=== PATIENT | female | born 1980 | race African-American/Black ===

== ENCOUNTER 2017-07-22 21:31 | Emergency (ER) | payer OTHER ==
[2017-07-22 22:27] LABS: URINE HCG POC HCG NEGATIVE (Negative)
== END 2017-07-22 23:29 | disposition home or self-care (01) ==
LOC: ER 21:31
DX: S16.1XXA Strain of muscle, fascia and tendon at neck level, initial encounter (principal); R51 Headache; V43.52XA Car driver injured in collision with other type car in traffic accident, initial encounter; Y92.410 Unspecified street and highway as the place of occurrence of the external cause; Y93.89 Activity, other specified; Y99.8 Other external cause status
CPT/HCPCS: 70450; 72125; 81025; 99284

== ENCOUNTER → 2017-07-29 | Outpatient (CLI) | payer OTHER | END | disposition home or self-care (01) | LOC: RAD 14:33 | DX: M54.2 Cervicalgia (principal); V29.88XA Motorcycle rider (driver) (passenger) injured in other specified transport accidents, initial encounter | CPT/HCPCS: 72050 ==

== ENCOUNTER 2020-05-30 02:37 | Emergency (ER) | payer BC, MEDICAID ==
[~2020-05-30] VITALS: Ht 165.1 cm; Wt 117.3 kg
[~2020-05-30 02:37] MED LIST: TRAM50TA PO
[2020-05-30] MEDS ORDERED: CLIN300C9 PO (03:10)
[2020-05-30] MEDS ORDERED: HYDR-2765 PO (03:10)
--- NOTE | 2020-05-30 03:11 | PHYS DOC ---
Past Medical History Past Medical History: No Pertinent History Past Surgical History: No Surgical History Smoking Status: Current Some Day Smoker Alcohol Use: None Drug Use: None General Adult EDM: Chief Complaint: DENTAL PROBLEM HPI: HPI: Patient is a 39 year old female presents with the chief complaint of left lower dental pain. Patient states she has had pain and discomfort for greater than 1 week. Patient was prescribed oxacillin by her dentist. Patient states she is on day 6 with no improvement. Patient was also prescribed hydrocodone for pain but she is currently out of it. Review of Systems: Review of Systems: Review of systems: Constitutional symptoms- No fever, no chills. Eyes- No Discharge, No Visual Loss Respiratory symptoms- No shortness of breath, No wheezing, No Dyspnea on Exertion Cardiovascular Systems; No chest pain, No Palpitations, No syncope Gastrointestinal symptoms: NO abdominal pain, no nausea, no vomiting or diarrhea. Genitourinary symptoms: No dysuria. Musculoskeletal symptoms: No back pain No extremity pain. NEUROLOGICAL Symptoms: No headache, no generalized weakness; No focal Weakness HEENT positive dental pain Heart Score: C/O Chest Pain: No Risk Factors: Risk Factors: DM, Current or recent (<one month) smoker, HTN, HLP, family history of CAD, obesity. Risk Scores: Score 0 - 3: 2.5% MACE over next 6 weeks - Discharge Home Score 4 - 6: 20.3% MACE over next 6 weeks - Admit for Clinical Observation Score 7 - 10: 72.7% MACE over next 6 weeks - Early Invasive Strategies Physical Exam: PE: General: alert, no acute distress. Skin: warm, dry and intact. Head:: Normocephalic, atraumatic. Neck: Trachea midline. Eyes: EOMI, Normal conjunctiva, No drainage CARDIOVASCULAR: Regular rate and rhythm RESPIRATORY: No respiratory distress Back: Full range of motion. MUSCULOSKELETAL: Full range of motion of bilateral upper and lower extremities. GASTROINTESTINAL: Abdomen soft without rebound or guarding. NEUROLOGICAL: Alert and noted to person, place and time. No neurological deficits observed Psychiatric: Cooperative. Normal judgment Oral-- gum swelling, jaw pain left EKG: EKG: [] Radiology/Procedures: Radiology/Procedures: [] Course & Med Decision Making: Course & Med Decision Making Pertinent Labs and Imaging studies reviewed. (See chart for details) [] Dragon Disclaimer: Dragon Disclaimer: This electronic medical record was generated, in whole or in part, using a voice recognition dictation system. Departure Departure Impression: Primary Impression: Pain, dental Disposition: 01 DC HOME SELF CARE/HOMELESS Condition: STABLE Referrals: JUAN DIEGO STEEN (PCP) Patient Instructions: Dental Pain Scripts Hydrocodone Bit/Acetaminophen (HYDROCODONE-APAP 7.5-325 ) 1 Tab Tablet 1 TAB PO PRN Q6HRS PRN for PAIN, #20 TAB 0 Refills Prov: SHARON PEDRO DO 05/30/20 Clindamycin Hcl (CLINDAMYCIN HCL) 300 Mg Capsule 300 MG PO QID, #40 CAP Prov: SHARON PEDRO DO 05/30/20 SHARON PEDRO DO May 30, 2020 03:11
[2020-05-30 03:30] VITALS: BP 132/70
== END 2020-05-30 03:30 | disposition home or self-care (01) ==
LOC: ER 02:37
DX: K08.89 Other specified disorders of teeth and supporting structures (principal); R60.0 Localized edema; R68.84 Jaw pain; Z87.891 Personal history of nicotine dependence
CPT/HCPCS: 99283